=== PATIENT | female | born 1990 | race Caucasian/White ===

== ENCOUNTER → 2024-05-05 07:51 | Outpatient (REF) | payer OTHER, SELFPAY | LOC: RAD 07:51 | PROVIDERS: ATTENDING PHYSICIAN Hospitalist | DX: R19.03 Right lower quadrant abdominal swelling, mass and lump (principal) | CPT/HCPCS: 76700; 76882 ==

== ENCOUNTER → 2024-06-05 17:15 | Outpatient (REF) | payer OTHER, SELFPAY | LOC: RAD 17:15 | PROVIDERS: ATTENDING PHYSICIAN Hospitalist | DX: R10.9 Unspecified abdominal pain (principal) | CPT/HCPCS: 76830; 76856 ==